=== PATIENT | male | born 1960 | race American Indian/Alaskan Native ===

== ENCOUNTER 2018-05-23 14:16 | Emergency (ER) | payer OTHER ==
[2018-05-23 14:17] VITALS: BMI 25.1
[2018-05-23 14:41] VITALS: RESP 18; TEMP 98.5
[2018-05-23] MEDS ORDERED: Tetracaine 0.5% Ophth 2 ML BOTTLE OS STA (14:46)
[2018-05-23] MEDS ORDERED: Tetracaine 0.5% Ophth 2 ML BOTTLE ONE (14:50)
--- NOTE | 2018-05-23 14:50 | ED PDOC ---
Arrival/HPI - General Chief Complaint: Eye Problem Time Seen by Provider: 05/23/18 14:43 Historian: Patient - History of Present Illness Narrative History of Present Illness (Text): 05/23/18 14:47 57 y/o male, with no significant PMH, who presents to the emergency department complaining of left eye discomfort since one day ago. Patient reports her thinks a piece of wood or grass scratch the left eye causing him discomfort. Patient denies and vision changes, headache, dizziness, nausea, vomiting, diarrhea, fever or other complaints. Patient does not wear contact or lenses. Time/Duration: 24 hours Symptom Onset: Sudden Symptom Course: Unchanged Past Medical History - Provider Review Nursing Documentation Reviewed: Yes - Infectious Disease Hx of Infectious Diseases: None - Cardiac Hx Pacemaker: No - Neurological Hx Paralysis: No - Hematological/Oncological Hx Blood Transfusions: No Hx Blood Transfusion Reaction: No - Musculoskeletal/Rheumatological Hx Musculoskeletal Disorders: No - Gastrointestinal Hx Gastrointestinal Disorders: No - Psychiatric Hx Physical Abuse: No Hx Substance Use: No - Surgical History Hx Orthopedic Surgery: Yes (see note) Other/Comment: RT KNEE TORN ACL, RT SHOULDER DISCOLATION - Anesthesia Hx Anesthesia Reactions: No Hx Malignant Hyperthermia: No - Suicidal Assessment Feels Threatened In Home Enviroment: No Family/Social History - Physician Review Nursing Documentation Reviewed: Yes Family/Social History: Unknown Family HX Smoking Status: Light Smoker < 10 Cigarettes Daily Hx Alcohol Use: Yes (QUIT DRINKING 1 YEAR AGO) Hx Substance Use: No Allergies/Home Meds Allergies/Adverse Reactions: Allergies No Known Allergies Allergy (Verified 10/25/15 08:08) Review of Systems - Physician Review All systems were reviewed & negative as marked: Yes - Review of Systems Eyes: Other (left eye discomfort ). absent: Vision Changes Neurological: absent: Headache, Dizziness Physical Exam Vital Signs Reviewed: Yes Vital Signs Temp Pulse Resp BP Pulse Ox 05/23/18 16:46 72 18 127/68 98 05/23/18 14:34 98.5 F 70 18 155/93 H 99 Temperature: Afebrile Blood Pressure: Hypertensive Pulse: Regular Respiratory Rate: Normal Appearance: Positive for: Well-Appearing, Non-Toxic, Comfortable Pain Distress: None Mental Status: Positive for: Alert and Oriented X 3 - Systems Exam Head: Present: Atraumatic, Normocephalic Pupils: Present: PERRL Extroacular Muscles: Present: EOMI Conjunctiva: Present: Normal, Other (no foreign bodies noted ) Neurological: Present: GCS=15, CN II-XII Intact, Speech Normal Skin: Present: Warm, Dry, Normal Color. No: Rashes Psychiatric: Present: Alert, Oriented x 3, Normal Insight, Normal Concentration Medical Decision Making ED Course and Treatment: 05/23/18 Impression: 57 y/o male with left eye discomfort since one day ago. Plan: -- Tetracaine -- Reassess and disposition Prior Visits: Notes and results from previous visits were reviewed. Progress Notes: 05/23/18 18:37 ?foriegn body in er, discussed with dr patrick. will see pt in am. - Medication Orders Current Medication Orders: Discontinued Medications Tetracaine HCl (Tetracaine 0.5% Ophth Soln) 1 drop OS STAT STA Stop: 05/23/18 14:47 Last Admin: 05/23/18 14:49 Dose: - Scribe Statement The provider has reviewed the documentation as recorded by the Antonellaibleila Quintero Provider Scribe Attestation: All medical record entries made by the Scribe were at my direction and personally dictated by me. I have reviewed the chart and agree that the record accurately reflects my personal performance of the history, physical exam, medical decision making, and the department course for this patient. I have also personally directed, reviewed, and agree with the discharge instructions and disposition. Disposition/Present on Arrival - Present on Arrival Any Indicators Present on Arrival: No History of DVT/PE: No History of Uncontrolled Diabetes: No Urinary Catheter: No History of Decub. Ulcer: No History Surgical Site Infection Following: None - Disposition Have Diagnosis and Disposition been Completed?: Yes Diagnosis: Eye foreign body Disposition: HOME/ ROUTINE Disposition Time: 04:00 Condition: STABLE Discharge Instructions (ExitCare): Foreign Body in Eye Additional Instructions: please follow up with opthomologist. return to er with worsening symptoms or concerns. Prescriptions: Polymyxin/Trimethoprim Sulfate [Polytrim Ophth Soln] 1 drop LEFTEYE Q4 #1 bottle Referrals: Nancy Bowman MD [Primary Care Provider] - Follow up with primary Zhao Lopez [Staff Provider] - Follow up with primary Forms: [employer] (Martiniquais)
[2018-05-23 16:47] VITALS: BP 127/68; PULSE 72; O2SAT 98
== END 2018-05-23 16:45 | disposition home or self-care (01) ==
LOC: ED 14:16
DX: T15.92XA Foreign body on external eye, part unspecified, left eye, initial encounter (principal); X58.XXXA Exposure to other specified factors, initial encounter; F17.210 Nicotine dependence, cigarettes, uncomplicated